=== PATIENT | female | born 1965 ===

== ENCOUNTER 2018-03-30 07:23 | Day surgery (SDC) | payer OTHER ==
[2018-03-30] MEDS ORDERED: Lactated Ringer's 500 ML IV ONE (08:12)
[2018-03-30] MEDS ORDERED: Midazolam 2 MG/2 ML VIAL ONE (08:39)
[2018-03-30] MEDS ORDERED: Propofol 10 mg/ml Inj (20 ML) ONE (08:39)
[2018-03-30 09:01] VITALS: RESP 13; TEMP 97
[2018-03-30 09:28] VITALS: BP 100/60; PULSE 77; O2SAT 100
== END 2018-03-30 10:41 | disposition home or self-care (01) ==
LOC: H.ENDO 07:23
PROVIDERS: ATTEND Internal Medicine Gastroenterology
DX: Z12.11 Encounter for screening for malignant neoplasm of colon (principal); K64.0 First degree hemorrhoids; Z80.0 Family history of malignant neoplasm of digestive organs
CPT/HCPCS: 45378; J2001; J2250; J2704; J7120